=== PATIENT | male | born 1960 | race Caucasian/White ===

== ENCOUNTER 2018-03-18 07:46 | Day surgery (SDC) | payer OTHER ==
[~2018-03-18] VITALS: Ht 185.4 cm; Wt 113.4 kg
[~2018-03-18 07:46] MED LIST: ACID CONTROL150 MG PO; ADVIL,NUPRIN,M200 MG PO; ANTI-DIARRHEA2 MG PO; ANTI-GAS166 MG PO; CALCIUM CITRAT1 EA15 PO; CELECOXIB200 MG PO; CYCLOBENZAPRINE10 MG PO; FISH OIL 1,0001 EAC7 PO; FLEXERIL10 MG PO; GLUCOSAMINE H1500 MG PO; HYDROCODON-ACE1 EAC7 PO; IRON325 M1 PO; IRON325 MG PO; LO-DOSE ASPIRIN81 M1 PO; LORCET 5-325 M1 EACH PO; LORTAB 5-325 M1 EACH PO; LOVENOX40 MG/0.4 SC; MULTIVITAMIN1 EAC2 PO; NAPROSYN500 MG PO; POTASSIUM GLUCO2 MEQ PO; POTASSIUM-9999 MG PO; ROXICODONE5 MG PO; VICODIN 5-3001 EACH PO; VITAMIN B12-FO1 EACH PO; VITAMIN C1000 MG PO; VITAMIN E100 UNIT PO; ZOFRAN8 MG PO
[2018-03-18] MEDS ORDERED: HYDROCODON-ACE1 EAC7 PO (08:21)
[2018-03-18 08:59] VITALS: BP 160/89
[2018-03-18 09:00] LABS: BILIRUBIN NEGATIVE; BLOOD NEGATIVE; COLOR AMBER ((YELLOW)); GLUCOSE (STRIP) NEGATIVE; KETONES 80; LEUKOCYTES NEGATIVE; NITRITE NEGATIVE; PROTEIN (STRIP) 30; SPECIFIC GRAVITY 1.031 (1.000-1.030); UROBILINOGEN 0.2 MG/DL (0.2-1.0)
[2018-03-18 09:01] LABS: APPEARANCE CLEAR ((CLEAR))
[2018-03-18 09:04] LABS: BASOPHIL (%) 0.2 % (0-1); EOSINOPHIL (%) 0.1 % (0-5); HEMATOCRIT 34.6 % (38.0-50.0); HEMOGLOBIN 12.1 G/DL (12.5-16.6); IMMATURE GRANULOCYTE (%) 0.7 % (0.0-0.7); LYMPHOCYTE COUNT 0.7 K/uL (1.0-2.8); MCH 34.1 PG (29.0-34.0); MCV 97.5 FL (86-99); MONOCYTE (%) 13.9 % (3-12); MONOCYTE COUNT 1.1 K/uL (0-0.8); NEUTROPHIL (%) 76.1 % (45-76); NEUTROPHIL COUNT 6.2 K/uL (1.8-6.4); PLATELET COUNT 178 K/uL (156-360); RBC DIS.WIDTH-CV 12.8 % (11.8-14.6); RED BLOOD COUNT 3.55 M/uL (4.00-5.50); WHITE BLOOD COUNT 8.1 K/uL (4.1-10.2)
[2018-03-18 12:56] VITALS: BP 124/78
== END 2018-03-18 13:35 | disposition home or self-care (01) ==
LOC: SDC 07:46
PROVIDERS: Anesthesiology
DX: N20.1 Calculus of ureter (principal); K21.9 Gastro-esophageal reflux disease without esophagitis; Z87.891 Personal history of nicotine dependence; Z79.82 Long term (current) use of aspirin; Z96.642 Presence of left artificial hip joint
CPT/HCPCS: 74420; 81003; 85025; 93005; C2625; J0131; J0330; J0690; J1100; J2250; J2405; J2710; J3010; J7643

== ENCOUNTER 2018-05-02 22:03 | Inpatient (IN) | payer OTHER ==
[~2018-05-02] VITALS: Ht 185.4 cm; Wt 106.7 kg
[~2018-05-02 22:03] MED LIST changes: +ACID REDUCER150 MG PO; +CYANOCOBALAM1000 MCG PO; +DILAUDID2 MG PO; +LIDOCAINE700 MG TP; +TRAMADOL HCL50 MG PO
[2018-05-03 07:39] VITALS: BP 133/82
[2018-05-03 12:24] LABS: HEMATOCRIT 34.5 % (38.0-50.0); HEMOGLOBIN 11.5 G/DL (12.5-16.6); MCH 33.2 PG (29.0-34.0); MCHC 33.3 G/DL (30.0-36.0); MCV 99.7 FL (86-99); PLATELET COUNT 212 K/uL (156-360); RBC DIS.WIDTH-CV 13.1 % (11.8-14.6); RBC DIS.WIDTH-SD 47.8 % (39-53); RED BLOOD COUNT 3.46 M/uL (4.00-5.50); WHITE BLOOD COUNT 8.9 K/uL (4.1-10.2)
[2018-05-03 13:18] VITALS: BP 142/80
[2018-05-03 15:47] VITALS: BP 126/76
[2018-05-03 20:19] VITALS: BP 122/68
[2018-05-04 00:18] VITALS: BP 114/66
[2018-05-04 03:50] VITALS: BP 119/67
[2018-05-04 05:50] LABS: CHLORIDE 110 MEQ/L (99-109); CREATININE 0.6 MG/DL (0.6-1.3); GFR ESTIMATE (CALCULATED) > 59 mL/min/ (58.99-99999); GLUCOSE 139 mg/dL (70-99); POTASSIUM 3.1 MEQ/L (3.7-5.4); SODIUM 141 MEQ/L (136-147); UREA NITROGEN (BUN) 9 mg/dL (9-23)
[2018-05-04 11:26] LABS: HEMOGLOBIN 10.5 G/DL (12.5-16.6); MCV 98.7 FL (86-99)
[2018-05-04 12:21] VITALS: BP 117/67
[2018-05-04 15:45] VITALS: BP 108/57
[2018-05-04 19:58] VITALS: BP 109/63
[2018-05-05 00:20] VITALS: BP 114/67
[2018-05-05 04:08] VITALS: BP 109/67; BP 167/86
[2018-05-05 06:57] LABS: ALBUMIN 3.1 G/DL (3.2-4.8); ALKALINE PHOSPHATASE 57 IU/L (3-129); ALT (GPT) 16 IU/L (3-49); AST (GOT) 20 IU/L (2-34); CHLORIDE 110 MEQ/L (99-109); CREATININE 0.6 MG/DL (0.6-1.3); GFR ESTIMATE (CALCULATED) > 59 mL/min/ (58.99-99999); GLUCOSE 104 mg/dL (70-99); POTASSIUM 3.6 MEQ/L (3.7-5.4); SODIUM 142 MEQ/L (136-147); TOTAL BILIRUBIN 1.5 MG/DL (0.0-1.0); TOTAL PROTEIN 4.6 G/DL (6.4-8.3); UREA NITROGEN (BUN) 9 mg/dL (9-23)
[2018-05-05 07:58] VITALS: BP 110/72
[2018-05-05 08:00] VITALS: BP 110/72
[2018-05-05] MEDS ORDERED: HYDROMORPHONE HC2 MG PO (08:52)
[2018-05-05] MEDS ORDERED: LOVENOX40 MG/0.4 SC (08:52)
[2018-05-05 12:15] VITALS: BP 107/83
[2018-05-05 15:31] VITALS: BP 144/73
== END 2018-05-05 16:50 | disposition home health service (06) | DRG 470 ==
LOC: ENRESERV 22:03 → 3WEST 05-03 06:51 → 2SOUTH 05-03 06:51 → 3WEST 05-03 13:00 → 2SOUTH 05-03 13:24 → 3WEST 05-05 16:50
PROVIDERS: Nurse Practitioner Family; Orthopaedic Surgery
PROC: 0SR902A Replacement of Right Hip Joint with Metal on Polyethylene Synthetic Substitute, Uncemented, Open Approach (ICD-10-PCS; principal; 2018-05-03)
DX: M16.11 Unilateral primary osteoarthritis, right hip (principal); E87.6 Hypokalemia; E53.8 Deficiency of other specified B group vitamins; K21.9 Gastro-esophageal reflux disease without esophagitis; Z96.642 Presence of left artificial hip joint; Z87.442 Personal history of urinary calculi; Z79.82 Long term (current) use of aspirin; Z98.1 Arthrodesis status; Z87.891 Personal history of nicotine dependence
CPT/HCPCS: 73501; 80048; 80053; 85014; 85018; 85027; J0131; J0690; J1100; J1170; J1650; J2250; J2405; J3010; J7050

== ENCOUNTER 2018-05-15 09:12 | Emergency (ER) | payer OTHER ==
[~2018-05-15] VITALS: Ht 185.4 cm; Wt 112.0 kg
[~2018-05-15 09:12] MED LIST changes: +HYDROMORPHONE HC2 MG PO
[2018-05-15 13:36] VITALS: BP 136/81
== END 2018-05-15 13:36 | disposition home or self-care (01) ==
LOC: EME 09:12
PROC: 0SS9XZZ Reposition Right Hip Joint, External Approach (ICD-10-PCS; principal; 2018-05-15)
DX: T84.020A Dislocation of internal right hip prosthesis, initial encounter (principal); K21.9 Gastro-esophageal reflux disease without esophagitis; Z90.49 Acquired absence of other specified parts of digestive tract; Z87.442 Personal history of urinary calculi; Z88.6 Allergy status to analgesic agent; Z88.5 Allergy status to narcotic agent; Z87.891 Personal history of nicotine dependence
CPT/HCPCS: 73501; 73502; 99281; 99284; J2270

== ENCOUNTER 2018-05-23 18:25 | Emergency (ER) | payer OTHER ==
[~2018-05-23] VITALS: Ht 185.4 cm; Wt 110.3 kg
[2018-05-23 19:39] LABS: HEMOGLOBIN 12.2 G/DL (12.5-16.6); MCHC 33.9 G/DL (30.0-36.0); MCV 100.3 FL (86-99); RBC DIS.WIDTH-CV 12.6 % (11.8-14.6); RBC DIS.WIDTH-SD 46.4 % (39-53); RED BLOOD COUNT 3.59 M/uL (4.00-5.50); WHITE BLOOD COUNT 4.7 K/uL (4.1-10.2)
[2018-05-23 19:43] LABS: PLATELET COUNT 359 K/uL (156-360)
[2018-05-23 19:46] LABS: INTER. NORMALIZED RATIO 1.1
[2018-05-23 20:11] LABS: C-REACTIVE PROTEIN 2.8 MG/L (0-10); CHLORIDE 109 MEQ/L (99-109); CREATININE 0.8 MG/DL (0.6-1.3); GFR ESTIMATE (CALCULATED) > 59 mL/min/ (58.99-99999); GLUCOSE 116 mg/dL (70-99); POTASSIUM 3.7 MEQ/L (3.7-5.4); SODIUM 145 MEQ/L (136-147); UREA NITROGEN (BUN) 8 mg/dL (9-23)
[2018-05-23 20:21] LABS: ERTH.SED.RATE 29 MM/HR (0-20)
[2018-05-23 21:46] VITALS: BP 134/72
== END 2018-05-23 21:48 | disposition home or self-care (01) ==
LOC: EME 18:25
PROVIDERS: Emergency Medicine
PROC: 0SWRXJZ Revision of Synthetic Substitute in Right Hip Joint, Femoral Surface, External Approach (ICD-10-PCS; principal; 2018-05-23)
DX: T84.020A Dislocation of internal right hip prosthesis, initial encounter (principal); Y79.2 Prosthetic and other implants, materials and accessory orthopedic devices associated with adverse incidents; M85.88 Other specified disorders of bone density and structure, other site; Z96.643 Presence of artificial hip joint, bilateral; Z87.891 Personal history of nicotine dependence
CPT/HCPCS: 73502; 73700; 80048; 85027; 85610; 85651; 85730; 86140; 99281; 99285; J2270

== ENCOUNTER 2018-06-06 21:50 | Inpatient (IN) | payer OTHER ==
[~2018-06-06] VITALS: Ht 185.4 cm; Wt 107.7 kg
[2018-06-07 09:43] VITALS: BP 151/93
[2018-06-07 16:49] LABS: PLAT.SUFFICIENCY ADEQUATE; PLATELET COUNT 224 K/uL (156-360)
[2018-06-07 16:54] LABS: HEMATOCRIT 34.3 % (38.0-50.0); HEMOGLOBIN 11.6 G/DL (12.5-16.6); MCH 33.2 PG (29.0-34.0); MCHC 33.8 G/DL (30.0-36.0); RBC DIS.WIDTH-CV 12.7 % (11.8-14.6); RBC DIS.WIDTH-SD 45.9 % (39-53); RED BLOOD COUNT 3.49 M/uL (4.00-5.50); WHITE BLOOD COUNT 7.3 K/uL (4.1-10.2)
[2018-06-07 16:55] LABS: MCV 98.3 FL (86-99)
[2018-06-07 19:42] VITALS: BP 128/81
[2018-06-07 20:00] VITALS: BP 128/81
[2018-06-07 23:27] VITALS: BP 105/67
[2018-06-08 03:22] VITALS: BP 118/77
[2018-06-08 07:47] LABS: CHLORIDE 104 MEQ/L (99-109); CREATININE 0.8 MG/DL (0.6-1.3); GFR ESTIMATE (CALCULATED) > 59 mL/min/ (58.99-99999); GLUCOSE 111 mg/dL (70-99); POTASSIUM 4.1 MEQ/L (3.7-5.4); SODIUM 139 MEQ/L (136-147); UREA NITROGEN (BUN) 10 mg/dL (9-23)
[2018-06-08 08:13] VITALS: BP 116/76
[2018-06-08] MEDS ORDERED: HYDROMORPHONE HC2 MG PO (09:03)
[2018-06-08 12:25] VITALS: BP 121/72
[2018-06-08 15:36] LABS: HEMATOCRIT 32.1 % (38.0-50.0); HEMOGLOBIN 10.8 G/DL (12.5-16.6)
[2018-06-08 16:06] VITALS: BP 101/61
[2018-06-08 23:06] VITALS: BP 111/72
[2018-06-09 07:24] VITALS: BP 112/76
== END 2018-06-09 10:48 | disposition home health service (06) | DRG 468 ==
LOC: ENRESERV 21:50 → 3EAST 06-07 08:55 → 2SOUTH 06-07 08:55 → CANRESERV 06-07 15:42 → ENRESERV 06-07 15:42 → 3EAST 06-07 19:38 → 2SOUTH 06-09 08:59 → 3EAST 06-09 10:48 → 2SOUTH 06-09 15:14
PROVIDERS: Orthopaedic Surgery
DX: T84.020A Dislocation of internal right hip prosthesis, initial encounter (principal); Y79.2 Prosthetic and other implants, materials and accessory orthopedic devices associated with adverse incidents; K21.9 Gastro-esophageal reflux disease without esophagitis; M19.90 Unspecified osteoarthritis, unspecified site; Z96.642 Presence of left artificial hip joint; Z87.442 Personal history of urinary calculi; Z87.891 Personal history of nicotine dependence
CPT/HCPCS: 36415; 73501; 80048; 85014; 85018; 85027; 86850; 86900; 86901; C1776; J0131; J0330; J0690; J1100; J1170; J1650; J2405; J3010; J7050